=== PATIENT | male | born 1950 | race Caucasian/White ===

== ENCOUNTER 2017-10-27 17:54 | Inpatient (IN) | payer OTHER, MEDICARE ==
[~2017-10-27] VITALS: Ht 182.9 cm; Wt 91.6 kg
[~2017-10-27 17:54] MED LIST: AMIODARONE HCL200 MG PO; ASPIRIN EC325 MG PO; BENICAR HCT 401 EACH PO; CARDURA4 MG PO; COZAAR25 MG PO; DOXYCYCLINE HY100 MG PO; FOLBIC TABLET1 EACH PO; LEVOTHROID75 MCG PO; LEVOTHYROXINE100 MCG PO; LEVOTHYROXINE88 MCG PO; LOSARTAN-HCTZ1 EAC2 PO; PERCOCET 7.5-31 EACH PO; PROPAFENONE HC150 MG PO; TOPROL XL50 MG PO; WARFARIN SODIUM5 MG PO
[2017-10-27] MEDS ORDERED: AMOX TR-K CLV1 EAC1 PO (18:07)
--- NOTE | 2017-10-29 08:31 | HP ---
[facility] [address], [place] [address] Signed ADMISSION DATE: 10/27/2017 TIME: 9:10 p.m. PROBLEM: Parapharyngeal edema, submandibular adenopathy, probable right lower molar dental issue. HISTORY: This 67-year-old white man, presented to the emergency room with a "sore throat" and right submandibular gland swelling and right neck soft tissue inflammation. He had some amount of trismus as well, but no lee airway compromise or drooling. He was initially evaluated by Dr. Card, subsequently by Dr. Jimenez. A CT scan was performed, which showed soft tissue fat stranding on the right side of the face and below the level of the mandible, the right submandibular gland enlargement and edema, and enlarged ducts. There were no stones seen. There was swelling of the right side of the neck with effacement on the right side of the airway including the right vallecula in the right side of the epiglottis and soft tissues with phlegmon, but no drainable purulent fluid collection. Parotid and thyroid glands were considered normal. 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 Notably, a right upper molar dental infection was considered likely with protrusion into the maxillary sinus showing significant mucosal thickening. The ear, nose, and throat surgeon on-call, Dr. Collado was summoned, but apparently unaware of his call scheduled list and out of town and I was then called by Dr. Jimenez. The patient tells me that he does not feel any difficulty or trouble with moving air. He has significant pain in the right submandibular gland area and right neck. He has never had infection of this or in the past. He recently saw his dentist, Dr. Sales in the past 2 weeks about a crown that he thought may have been infected. Dr. Sales did not find it likely. PAST MEDICAL HISTORY: Does include atrial fibrillation with ablated procedure, but chronically anticoagulated Electronically Signed By: DENA MARI MD 10/29/17 0831 PATIENT NAME: YESENIA RINCON HISTORY AND PHYSICAL DATE OF : 52 PHYSICIAN: DENA MARI MD REPORT #: [id number] REPORT IS CONFIDENTIAL AND NOT TO BE RELEASED WITHOUT AUTHORIZATION [facility] [address], [place] [address] Signed with warfarin at this point. He denies other major medical problems. REVIEW OF SYSTEMS: He denies any shortness of breath. He is having no trouble breathing. He denies any headache. PHYSICAL EXAMINATION: GENERAL: A relatively large white man, accompanied by his . He appears to be having no air hunger at this time. HEENT: His trachea remains midline and is easily palpable. He definitely has a soft tissue swelling to the right of his trachea and the soft tissue, as well as marked tenderness to the right submandibular gland. The patient is unable to open his mouth more than about 2.5 to 3 cm. He has no hypersalivation. He does not have tenderness to his right maxillary sinus that I can tell clinically. CHEST: Shows normal respiratory excursion without tachypnea, and there is no wheezing. ABDOMEN: Somewhat obese, but soft. EXTREMITIES: No clubbing, cyanosis, or edema. IMAGING DATA: I reviewed the CT scan of the neck in detail. This includes coronal views, which show a very slight deviation of his proximal hypopharyngeal airway deviated to the left. No doubt from the soft tissue process. The vocal cords are visualized. Airway appears patent including the distal trachea. There is no endoluminal mass. The right and left maxillary sinuses have thickening and probably fluid within them both and appear symmetric in the coronal view. ASSESSMENT: The patient has soft tissue infection of the parapharyngeal areas without evidence of abscess or drainable fluid collection. Intravenous antibiotics are clearly indicated and close observation. Steroids would be helpful as well. He will be admitted to the intensive care unit for close monitoring and intravenous antibiotic and steroid therapy. An emergency tracheostomy however and likely will be promptly performed if need be. He shows no evidence of airway compromise at the moment. As he is anticoagulated prophylactically on the basis of prior history of atrial fibrillation, but clinically has a normal sinus rhythm at this time, we will reverse his anticoagulation with vitamin K. On the unlikely event, an emergency airway would need to be provided. Electronically Signed By: DENA MARI MD 10/29/17 0831 PATIENT NAME: YESENIA RINCON HISTORY AND PHYSICAL DATE OF : 52 PHYSICIAN: DENA MARI MD REPORT #: [id number] REPORT IS CONFIDENTIAL AND NOT TO BE RELEASED WITHOUT AUTHORIZATION [facility] [address], [place] [address] Signed I have discussed this in detail with Dr. Jimenez, emergency room physician, as well as the patient and his . All agreed to this approach. MD PAPA Curtis/ALBERTO /[id number] cc: MD Shayne Costello MD Robert A Pratt, DDS Electronically Signed By: DENA MARI MD 10/29/17 0831 PATIENT NAME: YESENIA RINCON HISTORY AND PHYSICAL DATE OF : 52 PHYSICIAN: DENA MARI MD REPORT #: [id number] REPORT IS CONFIDENTIAL AND NOT TO BE RELEASED WITHOUT AUTHORIZATION
[2017-10-31] MEDS ORDERED: CLINDAMYCIN HC300 MG PO (09:49)
[2017-10-31] MEDS ORDERED: FAMOTIDINE20 MG PO (09:50)
[2017-10-31] MEDS ORDERED: HYDROCODON-ACE1 EA10 PO (09:50)
[2017-10-31] MEDS ORDERED: DEXAMETHASONE4 MG PO (09:53)
--- NOTE | 2017-11-03 18:00 | DS ---
[facility] [address], [place] [address] Signed ADMISSION DATE: 10/27/2017 DISCHARGE DATE: 10/31/2017 REASON FOR ADMISSION: Significant parapharyngeal cellulitis with edema, submandibular adenopathy, possible molar dental etiology. HISTORY OF PRESENT ILLNESS: This 67-year-old white man presents to the emergency room with a "sore throat and right submandibular gland swelling and right neck soft tissue inflammation." He had a significant amount of trismus as well, but no lee airway compromise or drooling. He was initially evaluated by Dr. Card, subsequently by Dr. Jimenez. A CT scan was performed, which showed soft tissue fat stranding on the right side of the face below the level of mandible, right submandibular gland enlargement and edema and enlarged ducts, but there were no stones. There was swelling of the right side of the neck with effacement on the right side of the airway, including the right vallecula and right side of the epiglottis and soft tissues with phlegmon, but no drainable purulent fluid collection. The parotid and thyroid glands were normal. 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 He was considered to have bilateral maxillary sinus fluid collections as well and a right upper molar dental infection was considered likely with protrusion of the root of the molar into the maxillary sinus. Strangely, the patient did not really complain of pain of the gum or tooth, only temperature sensitivity to it. His dentist is Dr. Sales. He is admitted for further evaluation and care. His past medical history does include atrial fibrillation with ablation procedure, but still chronically anticoagulated with Coumadin. He denies other major medical problems. PHYSICAL EXAMINATION: GENERAL: A large white man, accompanied by his , Sandra (formally Sandra Vasquez). He appears to be having no difficulty with breathing currently. HEENT: His trachea is midline. It is easily palpable. He has a soft tissue swelling to the right of the trachea and cellulitic changes, as well as marked tenderness to the right submandibular gland with a quite a bit of enlargement. The patient is unable to Electronically Signed By: DENA MARI MD 11/03/17 1800 PATIENT NAME: YESENIA RINCON DISCHARGE SUMMARY DATE OF : 52 PHYSICIAN: DENA MARI MD REPORT #: [id number] REPORT IS CONFIDENTIAL AND NOT TO BE RELEASED WITHOUT AUTHORIZATION [facility] [address], [place] [address] Signed open his mouth more than about 2.5 cm. He has no hypersalivation. He does not really have tenderness in his right maxillary sinus that I can tell. LUNGS: He has normal respiratory excursion. No wheezing. ABDOMEN: Obese, but soft. EXTREMITIES: No clubbing, cyanosis, or edema. Additionally, his white count was noted to be elevated to 14.6. HOSPITAL COURSE: Given the significant risks to airway compromise if the infection was not relatively rapidly controlled, he is admitted to the intensive care unit. He was begun on intravenous clindamycin 900 mg q.6 hours, additionally meropenem 1 g IV q.8 hours. Decadron was administered 10 mg IV daily. Within 24 hours, he had marked improvement clinically and white count decreased as well to 11.4. His trismus was still present, but somewhat improved. He had far less submandibular swelling. He had progressive improvement of his clinical situation and was transferred from the intensive care unit on day #3. He was advanced from a clear liquid diet on the first day. His Coumadin was held and indeed Protime reversed (INR was only 1.5 to begin with) on the possibility of an emergency tracheostomy for airway control. This was re-initiated as well. In time, he is able to tolerate a full liquid diet. His trismus was markedly improved, though not completely gone, but the swelling was remarkably improved. It remains uncertain as to the etiology of his problem, but I suspect it is a dental infection. DISCHARGE MEDICATIONS: He was transitioned to oral antibiotic regimen to include clindamycin 600 mg p.o. t.i.d., to continue with Augmentin 875/125 one p.o. b.i.d. (he had previously), to continue with dexamethasone 4 mg p.o. daily for 10 days, and to use Pepcid 20 mg p.o. b.i.d. for gastric protection related to the steroids. For pain, he will have [place] 1 to 2 p.o. q.4 hours p.r.n. pain #30, and is encouraged to use Motrin or Tylenol in lieu of the narcotic if possible. He will resume his usual medication of Toprol-XL 50 mg p.o. daily, his folic acid supplement as well as doxazosin 4 mg p.o. daily, losartan/hydrochlorothiazide one p.o. daily, and re-initiate his usual warfarin dosing, which is 5 mg p.o. daily with a dose of 2.5 mg Wednesday and Wednesday. He will resume Synthroid 100 mcg p.o. daily as well. The patient will have his ProTime evaluated on Wednesday (today is Wednesday) and adjustment Electronically Signed By: DENA MARI MD 11/03/17 1800 PATIENT NAME: YESENIA RINCON DISCHARGE SUMMARY DATE OF : 52 PHYSICIAN: DENA MARI MD REPORT #: [id number] REPORT IS CONFIDENTIAL AND NOT TO BE RELEASED WITHOUT AUTHORIZATION [facility] [address], [place] [address] Signed of his Coumadin will be based on his INR. He will call Dr. Griffin for further management of that; if he is not available, I will assist him for the time being. DISCHARGE DIAGNOSES: 1. Parapharyngeal cellulitis and edema with impending airway compromise, etiology uncertain, but likely related to dental infection. 2. Chronic anticoagulation with Coumadin for history of atrial fibrillation, status post atrial arrhythmia ablation, currently normal sinus rhythm. 3. Hypertension. FOLLOWUP PLANS: He will return to see me in approximately 3 to 4 weeks. He will continue his antibiotic therapy for the next 10 days as described. If things should worsen in the meantime, he will let me know. In time, he will follow up with his dentist, Dr. Sales for further evaluation of his dental issues, though they are clinically silent at this time. MD PAPA Curtis/ALBERTO /[id number] cc: MD Yesenia Mendoza DDS Kelly Dean Pridgen, MD Electronically Signed By: DENA MARI MD 11/03/17 1800 PATIENT NAME: YESENIA RINCON DISCHARGE SUMMARY DATE OF : 52 PHYSICIAN: DENA MARI MD REPORT #: [id number] REPORT IS CONFIDENTIAL AND NOT TO BE RELEASED WITHOUT AUTHORIZATION
== END 2017-10-31 11:59 | disposition home or self-care (01) | DRG 159 ==
LOC: ED 17:54 → CCU 21:13 → MS 10-29 11:15
PROVIDERS: ADMIT Surgery
DX: K12.2 Cellulitis and abscess of mouth (principal); R60.9 Edema, unspecified; I10 Essential (primary) hypertension; I48.91 Unspecified atrial fibrillation; E03.9 Hypothyroidism, unspecified; R59.9 Enlarged lymph nodes, unspecified
CPT/HCPCS: 36415; 70491; 80053; 85025; 85610; 86140; 96365; 96366; 96375; 99285; J0131; J0295; J1100; J1170; J2185; J2405; J2550; J3430; J3490; J7030; J7120; Q9967

== ENCOUNTER 2017-11-05 08:25 | Emergency (ER) | payer OTHER ==
[~2017-11-05] VITALS: Ht 182.9 cm; Wt 91.6 kg
[~2017-11-05 08:25] MED LIST changes: +AMOX TR-K CLV1 EAC1 PO; +CLINDAMYCIN HC300 MG PO; +DEXAMETHASONE4 MG PO; +FAMOTIDINE20 MG PO; +HYDROCODON-ACE1 EA10 PO
[2018-04-19] MEDS ORDERED: BICALUTAMIDE50 MG PO (08:23)
[2018-04-19] MEDS ORDERED: TERAZOSIN HCL5 MG PO (08:23)
== END 2017-11-05 22:42 | disposition short-term general hospital (02) ==
LOC: ED 08:25
DX: K04.7 Periapical abscess without sinus (principal); D49.6 Neoplasm of unspecified behavior of brain; I10 Essential (primary) hypertension; I48.91 Unspecified atrial fibrillation; E03.9 Hypothyroidism, unspecified; Z79.2 Long term (current) use of antibiotics; Z79.891 Long term (current) use of opiate analgesic; Z79.899 Other long term (current) drug therapy; Z79.01 Long term (current) use of anticoagulants
CPT/HCPCS: 70450; 70492; 70553; 80053; 85025; 96361; 96374; 96375; 99285; A9579; J0295; J1100; J7030; Q9967

== ENCOUNTER 2021-08-07 06:35 | Day surgery (SDC) | payer MEDICARE, OTHER ==
[~2021-08-07] VITALS: Ht 182.9 cm; Wt 76.5 kg
[~2021-08-07 06:35] MED LIST changes: +BICALUTAMIDE50 MG PO; +HYDROCHLOROTH12.5 MG PO; +JANTOVEN5 MG PO; +LOSARTAN POTAS100 MG PO; +TERAZOSIN HCL2 MG PO; +TERAZOSIN HCL5 MG PO
--- NOTE | 2021-08-07 08:33 | NUR ---
08/07/21 0833 Nila Ballesteros 7456-PATIENT ARRIVED TO PACU ON 6L MASK AWAKE DROWSY DENIES PAIN OR NAUSEA FOLLOWING COMMANDS. SR IVF INFUSING. INCISION SITES CDI.
[2021-08-07] MEDS ORDERED: ACETAMINOPHEN500 MG PO (08:46)
[2021-08-07] MEDS ORDERED: OXYCODON-ACETA1 EAC2 PO (08:46)
--- NOTE | 2021-08-07 09:09 | NUR ---
PATIENT BACK TO ROOM FROM PACU. RECEIVED REPORT FROM CLAUDIA BURGOS. PATIENT IS AWAKE. VSS. DENIES NAUSEA. PATIENT STATES PAIN A 0/10. BOTH DRESSINGS ON LEFT SHOULDER CLEAN, DRY, AND INTACT. PROVIDED PATIENT WITH WATER AND JELLO. AT BEDSIDE. CALL LIGHT WITHIN REACH.
--- NOTE | 2021-08-07 09:32 | NUR ---
PT ALERT, ORIENTED AND SUPPORTED BY HIS EAN. PT SEEMS VERY COMFORTABLE WITH PROCEDURE TODAY. NO QUESTIONS OR CONCERNS, BUT IS DEALING WITH ISSUES SURROUNDING AGING PARENT THAT IS SOMETHING WE DEBRIEFED ON. HAD PRAYER WITH PT, WILL CONTINUE TO FOLLOW
--- NOTE | 2021-08-07 09:40 | NUR ---
OFFERED PATIENT PAIN MEDICATION BEFORE DISCHARGE AND PATIENT DECLINES. RATES PAIN 0/10.
--- NOTE | 2021-08-07 10:20 | NUR ---
PT HAS EATEN AND DRANK. VOIDS 400MLS [facility] URINE. AMB WELL. WANTS TO GO HOME. HAS DECLINED PAIN MEDICINE WHEN OFFERED.
--- NOTE | 2021-08-07 15:06 | OR ---
[facility] [address] [place], [place] [address] Signed DATE OF OPERATION: 08/07/2021 SURGEON: Dena Mari MD PREOPERATIVE DIAGNOSES: 1. Left anterior deltoid soft tissue mass (large). 2. Left posterior scapular area epidermal inclusion cyst. POSTOPERATIVE DIAGNOSES: 1. Left anterior deltoid lipoma 6 cm. 2. Epidermal inclusion cyst, left posterior shoulder area. PROCEDURES: 1. Excision of left deltoid soft tissue mass. 2. Excision of left posterior shoulder skin lesion, 2.8 cm excision size. ANESTHESIA: General LMA. Dena Francois CRNA and local 8 mL of 0.25% Marcaine with epinephrine. INDICATION: This 71-year-old white man is a patient of Dr. Tahir Griffin and was noted to have a soft tissue mass of the left anterolateral deltoid area. Additionally, he is noted to have a nodule in the posterior deltoid area. Both lesions are somewhat increasing in size and though not acutely inflamed excision has been offered. The patient understands that the soft tissue mass is most likely benign, though not invariably so and wishes to proceed with excision. The epidermal inclusion cyst was quite obvious in the posterior scapular area and will be excised concurrently. DESCRIPTION OF PROCEDURE: The patient was brought to the operating room, given a general LMA type anesthetic and placed in lateral position right side down. The left shoulder area including the anterior chest, posterior thorax, and so forth were prepared with Betadine solution and draped sterilely. An incision was made directly over the soft tissue mass in the anterolateral deltoid. Dissection was carried through the dermis using blunt and electrocautery dissection. An obvious lipomatous mass was noted. It was well demarcated and lobulated. It was dissected free down to the fascia of the deltoid muscle itself and excised completely. It was measured at 6 cm in size. The wound was closed with interrupted 2-0 Vicryl in deep dermal area and a running 4-0 nylon of the skin itself. Electronically Signed By: DENA MARI MD 08/07/21 1506 PATIENT NAME: YESENIA RINCON OPERATIVE REPORT DATE OF : 52 REPORT #: [id number] PHYSICIAN: DENA MARI MD PCP: OCTAVIANO GRIFFIN MD REPORT IS CONFIDENTIAL AND NOT TO BE RELEASED WITHOUT AUTHORIZATION [facility] [address] [place] [id number] Signed Attention was turned to the left posterior deltoid area. Elliptical excision was undertaken likely an epidermal inclusion cyst. Excision size was 2.8 cm. This was secured with electrocautery and closed in a similar way as the other lesion. Bacitracin was applied to both sites as was gauze and tape. The patient was ultimately extubated and transferred to the recovery room in good condition. BLOOD LOSS: Minimal. MD PAPA Curtis/LONIL /[id number] cc: Octaviano Griffin MD Copies: OCTAVIANO GRIFFIN MD ~ Electronically Signed By: DENA MARI MD 08/07/21 1506 PATIENT NAME: YESENIA RINCON OPERATIVE REPORT DATE OF : 52 REPORT #: [id number] PHYSICIAN: DENA MARI MD PCP: OCTAVIANO GRIFFIN MD REPORT IS CONFIDENTIAL AND NOT TO BE RELEASED WITHOUT AUTHORIZATION
--- NOTE | 2021-08-08 15:23 | PATH ---
[facility] [address] [facility] [place], [place] [address] Signed SPECIMEN(S): A LEFT DELTOID LIPOMA SPECIMEN(S): B CYST SPECIMEN SOURCE: A. LEFT DELTOID LIPOMA B. CYST CLINICAL HISTORY: A) Left shoulder mass; 6 cm left deltoid lipoma. B) Left shoulder epidermal inclusion cyst. FINAL PATHOLOGIC DIAGNOSIS: A. Lipoma, left deltoid: - Lipoma. B. Epidermal inclusion cyst, left shoulder: - Dermatofibroma. - Surgical resection margins are free of this benign lesion. COMMENT: Regarding specimen A, the specimen consists of benign adipose tissue consistent with a lipoma. Atypical features are not seen. Regarding specimen B, the lesion is a benign dermatofibroma without atypical features. TWK:[id number] MICROSCOPIC EXAMINATION: Histologic sections of all submitted blocks are examined by light microscopy. These findings, together with the gross examination, support the pathologic diagnosis. GROSS DESCRIPTION: Two specimens are received in two containers, labeled "RR." A. The specimen, labeled "RR, A.," and designated on the requisition "left deltoid lipoma," is received in formalin and consists of a lobulated adipose tissue fragment measuring 6.5 x 4.9 x 1.9 cm. Specimen is serially sectioned revealing homogenous surface and outside industrial sales representative sections are submitted in cassette (A1). B. The specimen, labeled "RR, B.," and designated on the requisition "left shoulder epidermal inclusion cyst," is received in formalin and consists of a 2.3 x 1.5 x 0.7 cm unoriented skin ellipse. The cutaneous surface contains central shallow dobbs papule measuring 0.4 cm from PATIENT NAME: YESENIA RINCON PATHOLOGY DATE OF : 52 REPORT #: [id number] PHYSICIAN: JOSE NORWOOD PCP: OCTAVIANO DOVE MD REPORT IS CONFIDENTIAL AND NOT TO BE RELEASED WITHOUT AUTHORIZATION [facility] [address] [place], [place] [address] Signed the nearest margin. The specimen is inked blue, serially sectioned (cyst not grossly identified) and entirely submitted in cassettes (B1-B2). AT (under the direct supervision of a pathologist) The Gross Description was prepared using a voice recognition system. The report was reviewed for accuracy; however, sound-alike word errors, addition and/or deletions may occur. If there is any question about this report, please contact Client Services. PERFORMING LABORATORY: The technical component was performed by [employer], [address] [place] [address] (Data Processing Equipment Repairer: Nina Tang MD; CLIA# [id number]). The professional interpretation was performed by [facility], [address] [place] [address]. Diagnostician: Michael Mendoza MD Pathologist Electronically Signed 08/08/2021 Copies: ~ PATIENT NAME: YESENIA RINCON PATHOLOGY DATE OF : 52 REPORT #: [id number] PHYSICIAN: JOSE NORWOOD PCP: OCTAVIANO DOVE MD REPORT IS CONFIDENTIAL AND NOT TO BE RELEASED WITHOUT AUTHORIZATION
== END 2021-08-07 10:15 | disposition home or self-care (01) ==
LOC: DS 06:35
PROVIDERS: ATTEND Surgery
PROC: 0HBCXZZ Excision of Left Upper Arm Skin, External Approach (ICD-10-PCS; 2021-08-07)
PROC: 0KB60ZZ Excision of Left Shoulder Muscle, Open Approach (ICD-10-PCS; principal; 2021-08-07 06:45)
DX: D17.22 Benign lipomatous neoplasm of skin and subcutaneous tissue of left arm (principal); D23.62 Other benign neoplasm of skin of left upper limb, including shoulder; G89.29 Other chronic pain; I10 Essential (primary) hypertension; I48.91 Unspecified atrial fibrillation; I48.92 Unspecified atrial flutter; E03.9 Hypothyroidism, unspecified; Z79.01 Long term (current) use of anticoagulants; Z85.46 Personal history of malignant neoplasm of prostate; Z86.011 Personal history of benign neoplasm of the brain; Z98.890 Other specified postprocedural states
CPT/HCPCS: 00300; J0690; J1100; J1644; J1885; J2250; J2405; J2704; J2765; J3010; J7121